=== PATIENT | female | born 1960 | race Two or more races ===

== ENCOUNTER 2017-05-29 21:41 | Emergency (ER) | payer MEDICAID ==
[~2017-05-29] VITALS: Ht 167.6 cm; Wt 72.6 kg
[~2017-05-29 21:41] MED LIST: CARV6.25 PO; OLME40TA12 PO
[2017-05-29 21:45] VITALS: BP 159/87
--- NOTE | 2017-05-29 21:45 | NUR ---
PT BIBRA TO ER BED 019 C/O LOWER BACK, L HIP, L KNEE AND R HAND PAIN S/P MECHANICAL SLIP AND FALL AT A [employer]. NO HEAD TRAUMA. L KNEE ABRASION ALSO NOTED. VSS. AWAITING MD CUADRA.
--- NOTE | 2017-05-29 22:08 | NUR ---
DR CUNNINGHAM AT BEDSIDE FOR EVAL.
[2017-05-29] MEDS ORDERED: IBUPROFEN 400 MG TABLET ONE (22:12)
--- NOTE | 2017-05-29 22:14 | NUR ---
PT TO RADIOLOGY FOR XRAY.
[2017-05-29] MEDS ORDERED: IBUPROFEN 400 MG TABLET PO ONE (22:30)
== END 2017-05-29 23:29 | disposition home or self-care (01) ==
LOC: ER 21:44
DX: M79.641 Pain in right hand (principal); M25.562 Pain in left knee; I10 Essential (primary) hypertension; E11.9 Type 2 diabetes mellitus without complications; F17.200 Nicotine dependence, unspecified, uncomplicated; Z98.890 Other specified postprocedural states; Z90.49 Acquired absence of other specified parts of digestive tract; Z90.89 Acquired absence of other organs; W01.0XXA Fall on same level from slipping, tripping and stumbling without subsequent striking against object, initial encounter; Y93.89 Activity, other specified; Y92.512 Supermarket, store or market as the place of occurrence of the external cause; Y99.8 Other external cause status
CPT/HCPCS: 72110-TC; 73020; 73130-TC; 73564-TC; A4606; Z7610

== ENCOUNTER 2024-11-24 15:32 | Emergency (ER) | payer MEDICAID ==
[~2024-11-24] VITALS: Ht 165.1 cm; Wt 78.0 kg
[2024-11-24 16:29] VITALS: BP 132/65; TEMP 97.9; O2SAT 99
[2024-11-24] MEDS ORDERED: LIDO30AD10 TP (18:04)
== END 2024-11-24 18:16 | disposition home or self-care (01) ==
LOC: ER 15:42
DX: R07.81 Pleurodynia (principal); I10 Essential (primary) hypertension; F17.200 Nicotine dependence, unspecified, uncomplicated; E11.9 Type 2 diabetes mellitus without complications; Z79.899 Other long term (current) drug therapy; Z98.890 Other specified postprocedural states
CPT/HCPCS: 71111-TC